=== PATIENT | male | born 1970 ===

== ENCOUNTER 2018-01-15 14:02 | Inpatient (IN) | payer OTHER ==
[~2018-01-15] VITALS: Ht 170.2 cm; Wt 76.2 kg
[2018-01-19] MEDS ORDERED: FLAGYL500MG PO (13:40)
[2018-01-19] MEDS ORDERED: CIPRO500 MG PO (13:40)
[2018-01-19] MEDS ORDERED: PEPCID20 MG PO (13:41)
== END 2018-01-19 14:45 | disposition home or self-care (01) | DRG 392 ==
LOC: ER 14:02 → SEC-K 22:20 → SURG 22:20 → SEC-K 01-16 14:23 → SURG 01-19 14:45
PROC: BW25Y0Z Computerized Tomography (CT Scan) of Chest, Abdomen and Pelvis using Other Contrast, Unenhanced and Enhanced (ICD-10-PCS; principal; 2018-01-15)
DX: K57.32 Diverticulitis of large intestine without perforation or abscess without bleeding (principal)